=== PATIENT | female | born 2005 | race Caucasian/White ===

== ENCOUNTER 2025-07-18 03:44 | Emergency (ER) | payer OTHER ==
[~2025-07-18] VITALS: Ht 162.6 cm; Wt 100.0 kg
[2025-07-18 03:56] VITALS: O2SAT 98
[2025-07-18 04:04] VITALS: TEMP 36.5
[2025-07-18] MEDS: ACETAMINOPHEN 325MG TABLET PO ONE (07:28)
[2025-07-18 10:14] VITALS: BP 113/71; PULSE 93; RESP 15; O2SAT 100
== END 2025-07-18 10:19 | disposition home or self-care (01) ==
LOC: ER 03:44
DX: M54.6 Pain in thoracic spine (principal); V43.52XA Car driver injured in collision with other type car in traffic accident, initial encounter; Y93.89 Activity, other specified; Y92.410 Unspecified street and highway as the place of occurrence of the external cause; Y99.8 Other external cause status
CPT/HCPCS: 71046; 73030; 99284